=== PATIENT | male | born 1950 | race African-American/Black ===

== ENCOUNTER 2016-08-29 10:57 | Emergency (ER) | payer SELFPAY ==
[~2016-08-29] VITALS: Ht 180.3 cm; Wt 76.0 kg
[~2016-08-29 10:57] MED LIST: CYCL-36 PO; DICL-86 PO; Z.0.UNKNOWN
[2016-08-29 11:22] VITALS: BP 120/71; PULSE 79; RESP 16; O2SAT 97
== END 2016-08-29 18:55 | disposition left against medical advice (07) ==
LOC: NED 10:57
DX: T14.90 Injury, unspecified (principal); Y09 Assault by unspecified means
CPT/HCPCS: 99281

== ENCOUNTER 2016-09-25 16:57 | Observation (INO) | payer SELFPAY ==
[~2016-09-25] VITALS: Ht 180.3 cm; Wt 75.0 kg
[2016-09-25 17:05] VITALS: BP 124/71; PULSE 65; RESP 18; TEMP 98.2; O2SAT 89
[2016-09-25] MEDS ORDERED: SODIUM CHLOR 0.9% 1000 ML INJ 1,000 ML IV ONE (17:05)
[2016-09-25 17:11] VITALS: O2SAT 89
[2016-09-25] MEDS ORDERED: RESP: ALBUTEROL 2.5 MG/3 ML NEB (SCH) INH ONE (17:15)
[2016-09-25 17:35] VITALS: O2SAT 95
[2016-09-25 17:42] LABS: AUTOMATED NEUTROPHIL # 2.4 TH/MM3 (1.8-7.7); BASOPHIL % 0.7 % (0.0-2.0); EOSINOPHIL % 0.9 % (0.0-4.0); HEMATOCRIT 31.9 % (39.0-51.0); HEMO FLAGS DIFF FINAL; LYMPH % 29.4 % (9.0-44.0); LYMPHOCYTE # 1.2 TH/MM3 (1.0-4.8); MEAN CORPUSCULAR HEMOGLOBIN 28.1 PG (27.0-34.0); MEAN CORPUSCULAR HGB CONC 33.9 % (32.0-36.0); MONO % 8.9 % (0.0-8.0); NEUT % 60.1 % (16.0-70.0); PLATELET COUNT 203 TH/MM3 (150-450); RED BLOOD COUNT 3.85 MIL/MM3 (4.50-5.90); RED CELL DISTRIBUTION WIDTH 15.4 % (11.6-17.2)
[2016-09-25 17:50] LABS: APTT (PATIENT) 25.2 SEC (24.3-30.1); PROTHROMBIN TIME - PATIENT 10.7 SEC (9.8-11.6)
--- NOTE | 2016-09-25 18:00 | RADRPT ---
EXAM DATE/TIME: 09/25/2016 17:10 [place] COMPARISON: No previous studies available for comparison. INDICATIONS : Syncope, Short of Breath, Chest Pain. MEDICAL HISTORY : None. SURGICAL HISTORY : None. ENCOUNTER: Initial ACUITY: 7 - 11 months PAIN SCORE: 7/10 LOCATION: Bilateral chest FINDINGS: Single AP view of the chest. The lungs are clear. Cardiomediastinal silhouette within normal limits. No evidence of pleural effusion or pneumothorax. CONCLUSION: No acute cardiopulmonary disease identified. Bunny Santacruz MD on September 25, 2016 at 17:58 Board Certified Radiologist. This report was verified electronically.
[2016-09-25] MEDS ORDERED: DILA8TAB4 PO (18:04)
[2016-09-25] MEDS ORDERED: CYCL1TAB29 PO (18:04)
[2016-09-25] MEDS ORDERED: LISI10TA3 PO (18:05)
[2016-09-25 18:10] LABS: ACETAMINOPHEN LESS THAN 2.0 MCG/ML (10.0-30.0)
[2016-09-25 18:20] VITALS: BP 150/83; PULSE 73; RESP 16; O2SAT 97
[2016-09-25 18:29] LABS: BLOOD, URINE NEG (NEG); COMMENT (UR) CULT NOT INDICATED; CULTURE IF INDICATED CULT NOT INDICATED; GLUCOSE,URINE NEG (NEG); HYALINE CAST, URINE 6 /lpf (RARE); KETONE, URINE NEG (NEG); MUCUS URINE FEW /lpf (OCC); NITRITE,URINE NEG (NEG); URINE COLOR LIGHT-YELLOW (YELLW/STRAW)
[2016-09-25 18:31] LABS: AMPHETAMINE, URINE NEG (NEG); BARBITURATES, URINE NEG (NEG); COCAINE, URINE POS (NEG)
--- NOTE | 2016-09-25 18:46 | PD ---
Physical Exam Date Seen by Provider: Sep 25, 2016 Time Seen by Provider: 17:[address] Santos, have reviewed the advance practice practitioner's documentation and am in agreement, met with the patient face to face, made the diagnosis, and the medical decision making was done by me. *My assessment and Findings: Patient seen and evaluated with PA, please see PA note for further details. Here because he states that he had taken Roxicodone today, inhaled her for the first time. He was found unresponsive, was given Narcan and is awake and alert in the ER. He denies any other ingestions. Vital signs are stable. Laboratory Tests Test 09/25/16 09/25/16 17:19 18:08 Red Blood Count 3.85 MIL/MM3 (4.50-5.90) Hemoglobin 10.8 GM/DL (13.0-17.0) Hematocrit 31.9 % (39.0-51.0) Monocytes (%) (Auto) 8.9 % (0.0-8.0) Salicylates Level 2.5 MG/DL (2.8-20.0) Acetaminophen Level LESS THAN 2.0 MCG/ML (10.0-30.0) Ethyl Alcohol Level 13 MG/DL (0-5) Urine Mucus FEW /lpf (OCC) Urine Cocaine Screen POS (NEG) Last 24 hours Impressions Chest X-Ray 09/25/16 1705 Signed Impressions: Service Date/Time: September 17:10 - CONCLUSION: No acute cardiopulmonary disease identified. Bunny Santacruz MD Chest x-ray did not show any signs of acute pulmonary processes. His urine toxicology screen shows cocaine. Vital signs are stable currently after observation in the ER. At this point, my plan would be to admit him for observation. Data Data Last Documented VS Vital Signs Date Time Temp Pulse Resp B/P Pulse Ox O2 Delivery O2 Flow Rate FiO2 09/25/16 18:20 73 16 150/83 97 Nasal Cannula 3 09/25/16 17:05 98.2 Orders Electrocardiogram (09/25/16 17:05) Alcohol (Ethanol) (09/25/16 17:05) Complete Blood Count With Diff (09/25/16 17:05) Drug Screen, Random Urine (09/25/16 17:05) Prothrombin Time / Inr (Pt) (09/25/16 17:05) Act Partial Throm Time (Ptt) (09/25/16 17:05) Salicylates (Aspirin) (09/25/16 17:05) Tylenol (Acetaminophen) (09/25/16 17:05) Urinalysis - C+S If Indicated (09/25/16 17:05) Chest, Single Ap (09/25/16 17:05) Iv Access Insert/Monitor (09/25/16 17:05) Ecg Monitoring (09/25/16 17:05) Oximetry (09/25/16 17:05) Sodium Chlor 0.9% 1000 Ml Inj (Ns 1000 M (09/25/16 17:05) Albuterol Neb (Albuterol Neb) (09/25/16 17:15) Basic Metabolic Panel (Bmp) (09/25/16 18:08) Labs Laboratory Tests Test 09/25/16 09/25/16 17:19 18:08 White Blood Count 4.0 TH/MM3 Red Blood Count 3.85 MIL/MM3 Hemoglobin 10.8 GM/DL Hematocrit 31.9 % Mean Corpuscular Volume 83.0 FL Mean Corpuscular Hemoglobin 28.1 PG Mean Corpuscular Hemoglobin 33.9 % Concent Red Cell Distribution Width 15.4 % Platelet Count 203 TH/MM3 Mean Platelet Volume 7.9 FL Neutrophils (%) (Auto) 60.1 % Lymphocytes (%) (Auto) 29.4 % Monocytes (%) (Auto) 8.9 % Eosinophils (%) (Auto) 0.9 % Basophils (%) (Auto) 0.7 % Neutrophils # (Auto) 2.4 TH/MM3 Lymphocytes # (Auto) 1.2 TH/MM3 Monocytes # (Auto) 0.4 TH/MM3 Eosinophils # (Auto) 0.0 TH/MM3 Basophils # (Auto) 0.0 TH/MM3 CBC Comment DIFF FINAL Differential Comment Prothrombin Time 10.7 SEC Prothromb Time International 1.0 RATIO Ratio Activated Partial 25.2 SEC Thromboplast Time Salicylates Level 2.5 MG/DL Acetaminophen Level LESS THAN 2.0 MCG/ML Ethyl Alcohol Level 13 MG/DL Urine Color LIGHT-YELLOW Urine Turbidity CLEAR Urine pH 6.0 Urine Specific [place] 1.008 Urine Protein NEG mg/dL Urine Glucose (UA) NEG mg/dL Urine Ketones NEG mg/dL Urine Occult Blood NEG Urine Nitrite NEG Urine Bilirubin NEG Urine Urobilinogen LESS THAN 2.0 MG/DL Urine Leukocyte Esterase NEG Urine RBC LESS THAN 1 /hpf Urine WBC 1 /hpf Urine Hyaline Casts 6 /lpf Urine Mucus FEW /lpf Microscopic Urinalysis Comment CULT NOT INDICATED Urine Opiates Screen NEG Urine Barbiturates Screen NEG Urine Amphetamines Screen NEG Urine Benzodiazepines Screen NEG Urine Cocaine Screen POS Urine Cannabinoids Screen NEG MDM Medical Record Reviewed: Yes Supervised Visit with YOKO: Yes Diagnosis Primary Impression: Opiate overdose Christopher Santos MD Sep 25, 2016 18:46
[2016-09-25 18:53] LABS: BICARBONATE 21.7 MEQ/L (21.0-32.0); POTASSIUM 3.5 MEQ/L (3.5-5.1)
--- NOTE | 2016-09-25 19:18 | PD ---
HPI Chief Complaint: OD/ Ingestion Time Seen by Provider: 19:13 Travel History International Travel<30 days: No Contact w/Intl Traveler<30days: No Traveled to known affect area: No History of Present Illness HPI 65-year-old male that presents to the ED for evaluation of old be. Apparently patient snorted some [place] as well as cocaine. Somebody called the ambulance as patient was unresponsive on scene and they were given Narcan with improvement of mentation and respiration. Initially patient did vomit. There was some concern about his O2 as he was blowing and 90s and 92 so the and was was concerned about aspiration but other than this patient complains of nothing. Patient he complained of some chest pressure and feeling like one of his lungs might have collapsed. Per patient he snorted this for recreational purposes. He states that he's done this before with no issues. Patient denies any injury. Apparently. He back patient was in a couch when this happened. Patient has been acting normal since been here. Patient voices no other concerns. Patient does admit to be somewhat lethargic but able to answer questions a properly. PFSH Past Medical History Blood Disorders: No Cardiovascular Problems: Yes (htn) Cerebrovascular Accident: Yes ("i think i've had a stroke before") Diminished Hearing: No Hepatitis: Yes (hep c positive per pt) Hypertension: Yes Psychiatric: No Tetanus Vaccination: Unknown Influenza Vaccination: No ?: Not Social History Alcohol Use: Yes ("one or 2 beers a day") Tobacco Use: Yes ("1 or 2 cigars every day") Substance Use: Yes Allergies-Medications (Allergen,Severity, Reaction): Coded Allergies: Penicillin (Verified Allergy, Severe, 09/25/16) Uncoded Allergies: IVP DYE (Allergy, Severe, 12/12/11) Reported Meds & Prescriptions Reported Meds & Active Scripts Active Reported Lisinopril 10 Mg Tab 10 Mg PO DAILY Dilaudid (Hydromorphone HCl) 8 Mg Tab 8 Mg PO TID Flexeril (Cyclobenzaprine HCl) 10 Mg Tab 10 Mg PO TID Review of Systems Except as stated in HPI: all other systems reviewed are Neg Physical Exam Narrative GENERAL: SKIN: Warm and dry. HEAD: Atraumatic. Normocephalic. EYES: Pupils equal and round 4 mm reactive to light and accommodation. No scleral icterus. No injection or drainage. ENT: No nasal bleeding or discharge. Mucous membranes pink and moist. Tongue is midline. No uvula deviation. NECK: Trachea midline. No JVD. CARDIOVASCULAR: Regular rate and rhythm. No murmurs, S3, S4. RESPIRATORY: No accessory muscle use. Clear to auscultation. Breath sounds equal bilaterally. GASTROINTESTINAL: Abdomen soft, non-tender, nondistended. Hepatic and splenic margins not palpable. MUSCULOSKELETAL: Extremities without clubbing, cyanosis, or edema. No obvious deformities. Full range of motion of the upper and lower extremities bilaterally. 2+ pulses bilaterally. NEUROLOGICAL: Awake and alert. No obvious cranial nerve deficits. Motor grossly within normal limits. Five out of 5 muscle strength in the arms and legs. Normal speech. PSYCHIATRIC: Appropriate mood and affect; insight and judgment normal. Data Data Last Documented VS Vital Signs Date Time Temp Pulse Resp B/P Pulse Ox O2 Delivery O2 Flow Rate FiO2 09/25/16 18:20 73 16 150/83 97 Nasal Cannula 3 09/25/16 17:05 98.2 Orders Electrocardiogram (09/25/16 17:05) Alcohol (Ethanol) (09/25/16 17:05) Complete Blood Count With Diff (09/25/16 17:05) Drug Screen, Random Urine (09/25/16 17:05) Prothrombin Time / Inr (Pt) (09/25/16 17:05) Act Partial Throm Time (Ptt) (09/25/16 17:05) Salicylates (Aspirin) (09/25/16 17:05) Tylenol (Acetaminophen) (09/25/16 17:05) Urinalysis - C+S If Indicated (09/25/16 17:05) Chest, Single Ap (09/25/16 17:05) Iv Access Insert/Monitor (09/25/16 17:05) Ecg Monitoring (09/25/16 17:05) Oximetry (09/25/16 17:05) Sodium Chlor 0.9% 1000 Ml Inj (Ns 1000 M (09/25/16 17:05) Albuterol Neb (Albuterol Neb) (09/25/16 17:15) Basic Metabolic Panel (Bmp) (09/25/16 18:08) Chlordiazepoxide (Librium) (09/25/16 19:30) Labs Laboratory Tests Test 09/25/16 09/25/16 17:19 18:08 White Blood Count 4.0 TH/MM3 Red Blood Count 3.85 MIL/MM3 Hemoglobin 10.8 GM/DL Hematocrit 31.9 % Mean Corpuscular Volume 83.0 FL Mean Corpuscular Hemoglobin 28.1 PG Mean Corpuscular Hemoglobin 33.9 % Concent Red Cell Distribution Width 15.4 % Platelet Count 203 TH/MM3 Mean Platelet Volume 7.9 FL Neutrophils (%) (Auto) 60.1 % Lymphocytes (%) (Auto) 29.4 % Monocytes (%) (Auto) 8.9 % Eosinophils (%) (Auto) 0.9 % Basophils (%) (Auto) 0.7 % Neutrophils # (Auto) 2.4 TH/MM3 Lymphocytes # (Auto) 1.2 TH/MM3 Monocytes # (Auto) 0.4 TH/MM3 Eosinophils # (Auto) 0.0 TH/MM3 Basophils # (Auto) 0.0 TH/MM3 CBC Comment DIFF FINAL Differential Comment Prothrombin Time 10.7 SEC Prothromb Time International 1.0 RATIO Ratio Activated Partial 25.2 SEC Thromboplast Time Sodium Level 140 MEQ/L Potassium Level 3.5 MEQ/L Chloride Level 106 MEQ/L Carbon Dioxide Level 21.7 MEQ/L Anion Gap 12 MEQ/L Blood Urea Nitrogen 13 MG/DL Creatinine 1.19 MG/DL Estimat Glomerular Filtration 75 ML/MIN Rate Random Glucose 101 MG/DL Calcium Level 8.6 MG/DL Salicylates Level 2.5 MG/DL Acetaminophen Level LESS THAN 2.0 MCG/ML Ethyl Alcohol Level 13 MG/DL Urine Color LIGHT-YELLOW Urine Turbidity CLEAR Urine pH 6.0 Urine Specific [place] 1.008 Urine Protein NEG mg/dL Urine Glucose (UA) NEG mg/dL Urine Ketones NEG mg/dL Urine Occult Blood NEG Urine Nitrite NEG Urine Bilirubin NEG Urine Urobilinogen LESS THAN 2.0 MG/DL Urine Leukocyte Esterase NEG Urine RBC LESS THAN 1 /hpf Urine WBC 1 /hpf Urine Hyaline Casts 6 /lpf Urine Mucus FEW /lpf Microscopic Urinalysis Comment CULT NOT INDICATED Urine Opiates Screen NEG Urine Barbiturates Screen NEG Urine Amphetamines Screen NEG Urine Benzodiazepines Screen NEG Urine Cocaine Screen POS Urine Cannabinoids Screen NEG MDM Medical Decision Making Medical Screen Exam Complete: Yes Emergency Medical Condition: Yes Medical Record Reviewed: Yes Interpretation(s) CBC & BMP Diagram 09/25/16 17:19 Alcohol positive. Tox screen positive for cocaine. EKG shows sinus rhythm with no sign of acute ischemia and arrhythmia read by me and attending. Chest x-ray negative for acute disease. Differential Diagnosis Abuse versus alcohol abuse versus opiate overdose versus withdrawal symptoms versus respiratory depression Narrative Course 65-year-old male that presents to the ED for evaluation of OD. Patient was properly examined and was found to have signs and symptoms consistent what appears to be appear overdose. Patient had good results with my lack sign. Patient has been doing okay although initially he was lethargic. Labs and imaging were done. Labs and imaging were essentially unremarkable other than for positive for cocaine and alcohol. My attending Dr. Meléndez evaluated the patient with me and recommends the patient gets admitted for observation to make sure the patient's symptoms do not worsen and he needs more Narcan. This was discussed with the patient who agrees with plan. HEPAS was paged and Dr Wood agrees to admission. Diagnosis Primary Impression: Opiate overdose Qualified Code: T40.601A - Opiate overdose, accidental or unintentional, initial encounter Admitting Information Admitting Physician Requests: Observation Delta Ferrer Sep 25, 2016 19:18
[2016-09-25 19:32] VITALS: BP 135/95; PULSE 84; RESP 17; O2SAT 97
--- NOTE | 2016-09-25 19:41 | HHI.HP ---
[facility] No Primary Care Physician Admission Diagnosis opiate cocaine accidental overdose Diagnoses: (1) Opiate overdose Diagnosis: Principal (2) Hypoxia Diagnosis: Principal (3) Cocaine abuse Diagnosis: Principal (4) HTN (hypertension) Diagnosis: [place] Travel History International Travel<30 Days: No Contact w/Intl Traveler <30 Da: No Traveled to Known Affected Are: No History of Present Illness This is a 65-year-old with a PMH of HTN, Hepatitis C and Polysubstance Abuse who was brought to the ER by EMS secondary to drug overdose. History unclear, but EMS arrived on scene to find pt obtunded w/ RR 4 and pinpoint pupils, s/p Narcan w/ improvement. EMS reports episode of vomiting and O2 sat 90% w/ concern for aspiration. On arrival, pt back to baseline mental status, admits to snorting Magdalene and Cocaine. BP 124/71, HR 65, O2 sat 89% on RA, Afebrile. Currently O2 sat 96% on 3L NC. CXR w/ no acute findings. CBC essentially unremarkable except for mild anemia. Chemistry unremarkable. Urine Drug Screen positive for Cocaine. Alcohol 13. U/a negative. Review of Systems Other ROS: 14 point review of systems otherwise negative. Past Family Social History Past Medical History PMH: HTN, Hepatitis C and Polysubstance Abuse Past Surgical History PAST SURGICAL HISTORY: Right Arm Surgery Allergies: Coded Allergies: Penicillin (Verified Allergy, Severe, 09/25/16) Uncoded Allergies: IVP DYE (Allergy, Severe, 12/12/11) Family History PAST FAMILY HISTORY: Reviewed. No h/o DM or CAD Social History PAST SOCIAL HISTORY: Drinks daily, 1-2 beers. Smokes 1-2 cigars. Positive for Cocaine/Opioid Abuse. Physical Exam Vital Signs Vital Signs Date Time Temp Pulse Resp B/P Pulse Ox O2 Delivery O2 Flow Rate FiO2 09/25/16 19:32 84 17 135/95 97 Nasal Cannula 3 09/25/16 18:20 73 16 150/83 97 Nasal Cannula 3 09/25/16 17:51 97 Nasal Cannula 3 09/25/16 17:35 95 Nasal Cannula 4.00 09/25/16 17:11 89 Room Air 09/25/16 17:11 69 18 98 Non-Rebreather 15 09/25/16 17:05 98.2 65 18 124/71 89 Physical Exam PE: GENERAL: Middle-aged black male in no acute distress. HEENT: PERRLA, EOMI. No scleral icterus or conjunctival pallor. No lid lag or facial droop. CARDIOVASCULAR: Regular rate and rhythm. No obvious murmurs to auscultation. No chest tenderness to palpation. RESPIRATORY: No obvious rhonchi or wheezing. Clear to auscultation. Breath sounds equal bilaterally. GASTROINTESTINAL: Abdomen soft, non-tender, nondistended. BS normal. MUSCULOSKELETAL: Extremities without clubbing, cyanosis, or edema. No obvious deformities. NEUROLOGICAL: Awake, alert and oriented x4. No focal neurologic deficits. Moving both upper and lower extremities spontaneously. Laboratory Laboratory Tests Test 09/25/16 09/25/16 17:19 18:08 White Blood Count 4.0 Red Blood Count 3.85 Hemoglobin 10.8 Hematocrit 31.9 Mean Corpuscular Volume 83.0 Mean Corpuscular Hemoglobin 28.1 Mean Corpuscular Hemoglobin 33.9 Concent Red Cell Distribution Width 15.4 Platelet Count 203 Mean Platelet Volume 7.9 Neutrophils (%) (Auto) 60.1 Lymphocytes (%) (Auto) 29.4 Monocytes (%) (Auto) 8.9 Eosinophils (%) (Auto) 0.9 Basophils (%) (Auto) 0.7 Neutrophils # (Auto) 2.4 Lymphocytes # (Auto) 1.2 Monocytes # (Auto) 0.4 Eosinophils # (Auto) 0.0 Basophils # (Auto) 0.0 CBC Comment DIFF FINAL Differential Comment Prothrombin Time 10.7 Prothromb Time International 1.0 Ratio Activated Partial 25.2 Thromboplast Time Sodium Level 140 Potassium Level 3.5 Chloride Level 106 Carbon Dioxide Level 21.7 Anion Gap 12 Blood Urea Nitrogen 13 Creatinine 1.19 Estimat Glomerular Filtration 75 Rate Random Glucose 101 Calcium Level 8.6 Salicylates Level 2.5 Acetaminophen Level LESS THAN 2.0 Ethyl Alcohol Level 13 Urine Color LIGHT-YELLOW Urine Turbidity CLEAR Urine pH 6.0 Urine Specific [place] 1.008 Urine Protein NEG Urine Glucose (UA) NEG Urine Ketones NEG Urine Occult Blood NEG Urine Nitrite NEG Urine Bilirubin NEG Urine Urobilinogen LESS THAN 2.0 Urine Leukocyte Esterase NEG Urine RBC LESS THAN 1 Urine WBC 1 Urine Hyaline Casts 6 Urine Mucus FEW Microscopic Urinalysis Comment CULT NOT INDICATED Urine Opiates Screen NEG Urine Barbiturates Screen NEG Urine Amphetamines Screen NEG Urine Benzodiazepines Screen NEG Urine Cocaine Screen POS Urine Cannabinoids Screen NEG Result Diagram: 09/25/16 17109/[id number]/161718 Assessment and Plan Problem List: (1) Opiate overdose ICD Code: T40.601A Status: Acute (2) Hypoxia ICD Code: R09.02 Status: Acute (3) Cocaine abuse ICD Code: F14.10 Status: Acute (4) HTN (hypertension) ICD Code: I10 Status: Acute Assessment and Plan A/P: 1. Opiate Overdose: Unintentional overdose after snorting "Magdalene" and Cocaine. S/p Narcan by EMS w/ mental status back to baseline. Will admit for Observation, place on telemetry. No narcotics. 2. Hypoxia: S/p Narcan by EMS followed by episode of vomiting w/ O2 sat 89% on RA, concern for aspiration. O2 sat currently 96% on 3L NC. CXR w/ no acute findings, images reviewed by me. Will continue to monitor for progression of PNA. Repeat labs in am. DuoNeb prn. 3. Cocaine Abuse: Pt counselled. Ativan prn if needed. 4. HTN: BP 150's, will monitor. Resume home Lisinopril. 5. DVT Prophylaxis: SCD/Teds. 6. Social work for d/c planning as needed. 7. Case discussed w/ ER physician at length. Problem Qualifiers (1) Opiate overdose: Qualified Code: T40.601A - Opiate overdose, accidental or unintentional, initial encounter Karyn Wood MD Sep 25, 2016 19:41
[2016-09-25] MEDS ORDERED: SODIUM CHLORIDE 0.9% FLUSH 5 ML FLUSH FLUSH PRN (19:45)
[2016-09-25] MEDS ORDERED: ONDANSETRON HCL 4 MG/2 ML VIAL IVP PRN (19:45)
[2016-09-25] MEDS ORDERED: ACETAMINOPHEN 325 MG TAB PO PRN (19:45)
[2016-09-25] MEDS ORDERED: BISACODYL 10 MG SUPP PR PRN (19:45)
[2016-09-25] MEDS: SODIUM CHLORIDE 0.9% FLUSH 5 ML FLUSH FLUSH SCH (20:35)
[2016-09-25] MEDS: SODIUM CHLOR 0.9% 1000 ML INJ 1,000 ML IV SCH (20:35)
[2016-09-25 21:49] VITALS: BP 151/82; PULSE 82; RESP 16; O2SAT 96
[2016-09-25] MEDS ORDERED: RESP: ALBUTEROL 2.5 MG/IPRATROPIUM 0.5 MG NEB (PRN) NEB (23:15)
[2016-09-26 03:28] VITALS: PULSE 69
[2016-09-26 04:00] VITALS: BP 110/64; PULSE 68; RESP 18; TEMP 97.8; O2SAT 97
[2016-09-26] MEDS: SODIUM CHLOR 0.9% 1000 ML INJ 1,000 ML IV SCH (05:28)
[2016-09-26 06:13] LABS: AUTOMATED NEUTROPHIL # 8.9 TH/MM3 (1.8-7.7); BASOPHIL % 0.4 % (0.0-2.0); EOSINOPHIL % 0.1 % (0.0-4.0); HEMATOCRIT 33.5 % (39.0-51.0); HEMO FLAGS DIFF FINAL; LYMPH % 8.1 % (9.0-44.0); LYMPHOCYTE # 0.8 TH/MM3 (1.0-4.8); MEAN CORPUSCULAR HEMOGLOBIN 27.9 PG (27.0-34.0); MEAN CORPUSCULAR HGB CONC 33.6 % (32.0-36.0); NEUT % 86.4 % (16.0-70.0); PLATELET COUNT 191 TH/MM3 (150-450); RED BLOOD COUNT 4.04 MIL/MM3 (4.50-5.90); WHITE BLOOD COUNT 10.3 TH/MM3 (4.0-11.0)
[2016-09-26 06:33] LABS: BLOOD UREA NITROGEN 10 MG/DL (7-18)
[2016-09-26 06:34] LABS: ALKALINE PHOSPHATASE 36 U/L (45-117); ALT (GPT) 23 U/L (12-78); ANION GAP 5 MEQ/L (5-15); AST (GOT) 29 U/L (15-37); CHLORIDE 109 MEQ/L (98-107); GLOMERULAR FILTRATION RATE 87 ML/MIN (>89); SODIUM (NA) 140 MEQ/L (136-145); TOTAL BILIRUBIN ADULT 1.2 MG/DL (0.2-1.0)
[2016-09-26 06:50] LABS: POTASSIUM 4.4 MEQ/L (3.5-5.1)
--- NOTE | 2016-09-26 08:07 | HHI.PR ---
Subjective Remarks Follow up for drug overdose with connie and cocaine. The patient reports he sees pain management once a month for his chronic back pains, takes Dilaudid 8mg po tid and Oramorph ER 30mg bid (verified on [place] Prescription Drug Monitoring Website, last filled by Dr. Burnette on 08/19/16) however he ran out of his medications so his friend gave him a Roxicodone and told him to break it apart and snort it because it will work better. The patient states he has never done that before. He also admits to recent cocaine use however not at the same time as snorting the Roxicodone. He denies any attempt to harm himself. He denies any depression. Today he feels back to his normal and wants to go home. He denies ever having any chest pain or shortness of breath. He has been tolerating oral intake, no further nausea/vomiting. Objective Vitals Vital Signs Date Time Temp Pulse Resp B/P Pulse Ox O2 Delivery O2 Flow Rate FiO2 09/26/16 04:00 97.8 68 18 110/64 97 09/26/16 03:28 69 09/25/16 21:49 82 16 151/82 96 Nasal Cannula 3 09/25/16 19:32 84 17 135/95 97 Nasal Cannula 3 09/25/16 18:20 73 16 150/83 97 Nasal Cannula 3 09/25/16 17:51 97 Nasal Cannula 3 09/25/16 17:35 95 Nasal Cannula 4.00 09/25/16 17:11 89 Room Air 09/25/16 17:11 69 18 98 Non-Rebreather 15 09/25/16 17:05 98.2 65 18 124/71 89 I/O 09/25/16 09/25/16 09/25/16 09/26/16 09/26/16 09/26/16 07:00 15:00 23:00 07:00 15:00 23:00 Output Total 500 ml Balance -500 ml Output Urine Total 500 ml # Voids 1 Result Diagram: 09/26/16 0530 09/26/16 0530 Imaging Last Impressions Chest X-Ray 09/25/16 1705 Signed Impressions: Service Date/Time: September 17:10 - CONCLUSION: No acute cardiopulmonary disease identified. Bunny Santacruz MD Objective Remarks GENERAL: Well-nourished, well-developed thin AA male patient in NAD. Sitting upright in bed, AAOx4. SKIN: Warm and dry. No rash. HEAD: Normocephalic. Atraumatic. EYES: Pupils equal and round. No scleral icterus. No injection or drainage. ENT: No nasal bleeding or discharge. Mucous membranes pink and moist. NECK: Supple. Trachea midline. CARDIOVASCULAR: Regular rate and rhythm. S1, S2 noted. No murmur appreciated. RESPIRATORY: No accessory muscle use. Clear to auscultation. Breath sounds equal bilaterally. GASTROINTESTINAL: Abdomen soft, non-tender, nondistended. Normoactive bowel sounds x4. MUSCULOSKELETAL: No obvious deformities. Extremities without clubbing, cyanosis , or edema. NEUROLOGICAL: Awake and alert. No obvious cranial nerve deficits. Motor grossly within normal limits. 5/5 muscle strength in bilateral upper and lower extremities. Normal speech. PSYCHIATRIC: Appropriate mood and affect; insight and judgment normal. Medications and IVs Current Medications Medications (Trade) Dose Ordered Sig/Marisol Route Start Time Stop Time Status Last Admin (NS Flush) 2 ml UNSCH PRN FLUSH 09/25/16 19:45 (NS Flush) 2 ml BID FLUSH 09/25/16 21:00 (Zofran Inj) 4 mg Q6H PRN IVP 09/25/16 19:45 (Dulcolax Supp) 10 mg DAILY PRN NC 09/25/16 19:45 (Tylenol) 650 mg Q6H PRN PO 09/25/16 19:45 (Prinivil) 10 mg DAILY PO 09/26/16 09:00 Urinary Catheter: No Vascular Central Line Catheter: No A/P Problem List: (1) Opiate overdose ICD Code: T40.601A Status: Acute (2) Hypoxia ICD Code: R09.02 Status: Acute (3) Cocaine abuse ICD Code: F14.10 Status: Acute (4) HTN (hypertension) ICD Code: I10 Status: Acute Assessment and Plan 65-year-old with a PMH of HTN, Hepatitis C and Polysubstance Abuse who was brought to the ER by EMS secondary to drug overdose. Opiate Overdose: Unintentional overdose after snorting "Connie" and Cocaine. S/ p Narcan by EMS w/ mental status back to baseline. No depression/SI. Observed overnight. Monitored on telemetry. No narcotics given. Patient AAOx4, tolerating oral intake, vitals stable, he wants to go home. Hypoxia: S/p Narcan by EMS followed by episode of vomiting w/ O2 sat 89% on RA , concern for aspiration. O2 sat currently 96% on 3L NC. CXR w/ no acute findings, images reviewed by me. Will continue to monitor for progression of PNA, patient denies cough/fevers. Repeat labs today stable. DuoNeb prn. Opiate/Cocaine Abuse: Pt extensively counselled. Ativan prn if needed. HTN: BP 150's, monitor. Resumed home Lisinopril. BP better controlled today. DVT Prophylaxis: SCD/Teds. Discharge Planning Discharge patient to home Condition on discharge: Improved Heart Healthy Diet as tolerated Ad [place] activity Rx written: Follow-up with primary care physician within 1 week Problem Qualifiers (1) Opiate overdose: Qualified Code: T40.601A - Opiate overdose, accidental or unintentional, initial encounter Meena Waters PA-C Sep 26, 2016 08:06
--- NOTE | 2016-09-26 08:07 | HHI.DCPOC ---
Discharge Care Plan Diagnosis: (1) Opiate overdose (2) Cocaine abuse (3) HTN (hypertension) Goals to Promote Your Health * To prevent worsening of your condition and complications * To maintain your health at the optimal level Directions to Meet Your Goals Take your medications as prescribed Follow your dietary instruction Follow activity as directed Keep your appointments as scheduled Take your immunizations and boosters as scheduled If your symptoms worsen call your PCP, if no PCP go to Urgent Care Center or Emergency Room Smoking is Dangerous to Your Health. Avoid second hand smoke Call the 24-hour hour crisis hotline for domestic abuse at Meena Waters PA-C Sep 26, 2016 08:07
[2016-09-26 08:20] VITALS: BP 116/65; PULSE 71; TEMP 97.8; O2SAT 94
[2016-09-26] MEDS: SODIUM CHLORIDE 0.9% FLUSH 5 ML FLUSH FLUSH SCH (08:48)
[2016-09-26] MEDS ORDERED: LISINOPRIL 10 MG TAB PO SCH (09:00)
[2016-09-26 09:21] VITALS: PULSE 73
[2016-09-26 09:48] VITALS: PULSE 76; O2SAT 93
[2016-09-26 12:16] VITALS: BP 120/63; PULSE 72; RESP 19; TEMP 97.7; O2SAT 92
--- NOTE | 2016-09-26 13:54 | EKG ---
Date Performed: 09/25/2016 Time Performed: 17:51:27 PTAGE: 65 years EKG: Sinus rhythm WITH OCCASIONAL VENTRICULAR PREMATURE COMPLEXES POSSIBLE ANTERIOR MYOCARDIAL INFARCTION Compared to the previous tracing, there has been improvement in the lateral T wave flattening but no other signif icant serial change ABNORMAL ECG PREVIOUS TRACING : 04/08/2002 18.39 DOCTOR: Carline Welch Interpretating Date/Time 09/26/2016 13:48:40
== END 2016-09-26 13:51 | disposition home or self-care (01) ==
LOC: NEPE 16:57 → NEDA 19:26 → NEPFCDU 23:36
PROVIDERS: ADMIT Hospitalist; ATTEND Hospitalist
DX: T40.601A Poisoning by unspecified narcotics, accidental (unintentional), initial encounter (principal); F14.10 Cocaine abuse, uncomplicated; I10 Essential (primary) hypertension; D64.9 Anemia, unspecified; R09.02 Hypoxemia; Z72.0 Tobacco use; Z86.73 Personal history of transient ischemic attack (TIA), and cerebral infarction without residual deficits
CPT/HCPCS: 71010; 80048; 80053; 80307; 80320; 81001; 85025; 85610; 85730; 93005; 94664; 96360; 99285; G0378; J7030; J7613; 80329; G0480

== ENCOUNTER 2017-02-11 21:20 | Emergency (ER) | payer OTHER, MEDICARE ==
[~2017-02-11] VITALS: Ht 177.8 cm; Wt 80.0 kg
[~2017-02-11 21:20] MED LIST changes: -CYCL-36 PO; -DICL-86 PO; +DILA8TAB4 PO; +LISI10TA3 PO; -Z.0.UNKNOWN
[2017-02-11 21:33] VITALS: BP 150/70; PULSE 83; RESP 20; TEMP 97.6; O2SAT 96
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
[2017-02-11 21:46] VITALS: BP 138/73; PULSE 82; RESP 20; O2SAT 96
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
[2017-02-11] MEDS ORDERED: BACL10TA PO (22:49)
[2017-02-11] MEDS ORDERED: IBUP800T23 PO (22:49)
== END 2017-02-11 23:54 | disposition home or self-care (01) ==
LOC: NEPE 21:20
DX: S16.1XXA Strain of muscle, fascia and tendon at neck level, initial encounter (principal); S46.911A Strain of unspecified muscle, fascia and tendon at shoulder and upper arm level, right arm, initial encounter; M54.5 Low back pain; R51 Headache; R20.9 Unspecified disturbances of skin sensation; I10 Essential (primary) hypertension; B19.20 Unspecified viral hepatitis C without hepatic coma; V43.62XA Car passenger injured in collision with other type car in traffic accident, initial encounter; Z79.899 Other long term (current) drug therapy
CPT/HCPCS: 70450; 72100; 72125; 73030; 99284

== ENCOUNTER 2017-03-02 16:33 | Emergency (ER) | payer MEDICARE, OTHER ==
[~2017-03-02] VITALS: Ht 177.8 cm; Wt 70.0 kg
[~2017-03-02 16:33] MED LIST changes: +BACL10TA PO; +IBUP800T23 PO
[2017-03-02 16:42] VITALS: BP 122/65; PULSE 89; RESP 18; TEMP 98.2; O2SAT 96
--- NOTE | 2017-03-02 18:59 | PD ---
HPI Chief Complaint: OD/ Ingestion Time Seen by Provider: 18:59 Travel History International Travel<30 days: No Contact w/Intl Traveler<30days: No Traveled to known affect area: No History of Present Illness HPI 66-year-old male came to the emergency room after he called 911 for being lethargic after starting $5 of heroin. As per EMS his GCS was 13. Patient was given Narcan. This has been 2 and half hours to 3 hours ago. At this point patient is fully awake and would like to go home. Vital signs are stable. He said he can call his nephew who can come and get him. PFS Past Medical History Narrative Medical List of his past medical, surgical, social and family history is reviewed from the nursing note. Blood Disorders: No Heart Rhythm Problems: No Cancer: No Cardiovascular Problems: Yes (HTN) High Cholesterol: No Chest Pain: No Congestive Heart Failure: No Cerebrovascular Accident: Yes ("i think i've had a stroke before") Diminished Hearing: No Endocrine: No Gastrointestinal Disorders: No Genitourinary: No Hepatitis: Yes (hep c positive per pt) Hypertension: Yes Immune Disorder: No Implanted Vascular Access Dvce: No Musculoskeletal: No Neurologic: No Psychiatric: No Reproductive: No Respiratory: No Past Surgical History Other Surgery: No Social History Alcohol Use: Yes ("one or 2 beers a day") Tobacco Use: Yes ("1 or 2 cigars every day") Substance Use: Yes Allergies-Medications (Allergen,Severity, Reaction): Coded Allergies: Penicillin (Verified Allergy, Severe, 02/11/17) Uncoded Allergies: IVP DYE (Allergy, Severe, 12/12/11) Comments List of his allergies reviewed from the nursing note. Reported Meds & Prescriptions Reported Meds & Active Scripts Active Baclofen 10 Mg Tab 10 Mg PO Q8HR PRN 10 Days Ibuprofen 800 Mg Tab 800 Mg PO Q6HR PRN Reported Lisinopril 10 Mg Tab 10 Mg PO DAILY Dilaudid (Hydromorphone HCl) 8 Mg Tab 8 Mg PO TID Narrative Medication List of his home medications reviewed from the nursing note. Review of Systems Except as stated in HPI: all other systems reviewed are Neg Physical Exam Narrative GENERAL: Awake, alert, no obvious distress SKIN: Focused skin assessment warm/dry. HEAD: Atraumatic. Normocephalic. EYES: Pupils equal and round. No scleral icterus. No injection or drainage. ENT: No nasal bleeding or discharge. Mucous membranes pink and moist. NECK: Trachea midline. No JVD. CARDIOVASCULAR: Regular rate and rhythm. No murmur appreciated. RESPIRATORY: No accessory muscle use. Clear to auscultation. Breath sounds equal bilaterally. GASTROINTESTINAL: Abdomen soft, non-tender, nondistended. Hepatic and splenic margins not palpable. MUSCULOSKELETAL: No obvious deformities. No clubbing. No cyanosis. No edema. NEUROLOGICAL: Awake and alert. No obvious cranial nerve deficits. Motor grossly within normal limits. Normal speech. PSYCHIATRIC: Appropriate mood and affect; insight and judgment normal. Data Data Last Documented VS Vital Signs Date Time Temp Pulse Resp B/P Pulse Ox O2 Delivery O2 Flow Rate FiO2 03/02/17 16:42 98.2 89 18 122/65 96 MDM Medical Decision Making Medical Screen Exam Complete: Yes Emergency Medical Condition: Yes Medical Record Reviewed: Yes Differential Diagnosis Heroin overdose Narrative Course 7:04 PM it has been almost 3 hours since patient received Narcan. He is fully awake and alert. I'm comfortable discharging him home. He is calling his nephew to come and get him. Procedures EKG Prior to Arrival: No Diagnosis Primary Impression: Accidental heroin overdose Qualified Code: T40.1X1A - Accidental heroin overdose, initial encounter Referrals: Primary Care Physician Disposition: 01 DISCHARGE HOME Condition: Stable Leonard Faith MD Mar 02, 2017 18:59
== END 2017-03-02 19:52 | disposition home or self-care (01) ==
LOC: NEPE 16:33
DX: T40.1X1A Poisoning by heroin, accidental (unintentional), initial encounter (principal); I10 Essential (primary) hypertension; B19.20 Unspecified viral hepatitis C without hepatic coma; Z86.73 Personal history of transient ischemic attack (TIA), and cerebral infarction without residual deficits; Z79.899 Other long term (current) drug therapy; Z88.0 Allergy status to penicillin; Z72.0 Tobacco use
CPT/HCPCS: 99283